=== PATIENT | male | born 1985 | race American Indian/Alaskan Native ===

== ENCOUNTER 2019-03-16 11:19 | Emergency (ER) | payer SELFPAY ==
[2019-03-16 11:25] VITALS: BP 143/108
--- NOTE | 2019-03-16 11:26 | Emergency Department Report ---
Blank Doc - Documentation Documentation: 33-year-old male that presents with meth detox. Saúl any SI/HI. This initial assessment/diagnostic orders/clinical plan/treatment(s) is/are subject to change based on patient's health status, clinical progression and re- assessment by fellow clinical providers in the ED. Further treatment and workup at subsequent clinical providers discretion. Patient/guardians urged not to elope from the ED as their condition may be serious if not clinically assessed and managed. Initial orders include: 1- Patient sent to MAIN ED for further evaluation and treatment 2- labs 3- UA
[2019-03-16 12:14] LABS: Basophils % (Auto) 0.5 % (0.0-1.8); Eosinophils % (Auto) 0.2 % (0.0-4.3); Hematocrit 35.5 % (35.5-45.6); Hemoglobin 11.6 gm/dl (11.8-15.2); Lymphocytes # (Auto) 2.5 K/mm3 (1.2-5.4); Lymphocytes % (Auto) 37.2 % (13.4-35.0); Mean Corpuscular HGB Conc 33 % (32-34); Mean Corpuscular Volume 81 fl (84-94); Monocytes % (Auto) 14.8 % (0.0-7.3); Platelet Count 455 K/mm3 (140-440); Red Blood Count 4.39 M/mm3 (3.65-5.03)
[2019-03-16 12:24] LABS: BUN/Creatinine Ratio 9; Blood Urea Nitrogen 7 mg/dL (9-20); Calcium 9.5 mg/dL (8.4-10.2); Hemolysis Index 0
--- NOTE | 2019-03-16 13:49 | Emergency Department Report ---
HPI - General Chief Complaint: Medical Clearance Time Seen by Provider: 03/16/19 11:25 - HPI HPI: 33-year-old -I[place] male presents to the emergency department to get help with his addiction to methamphetamines. He did last use meth daily. He al so will occasionally smoke marijuana. He denies any medical or psychiatric history. He is looking for some type of program for detox/rehabilitation. Patient says he does hear some nonspecific voices while on meth. He denies any suicidal or homicidal ideations. ED Past Medical Hx - Past Medical History Previous Medical History?: No - Surgical History Past Surgical History?: No - Social History Smoking Status: Current Every Day Smoker Substance Use Type: Alcohol, Methamphetamines - Medications Home Medications: Home Medications Medication Instructions Recorded Confirmed Last Taken Type Ibuprofen [Motrin 600 MG tab] 600 mg PO Q8H PRN #20 tablet 01/30/15 Unknown Rx Sulfamethoxazole/Trimethoprim 1 each PO BID #10 tablet 01/30/15 Unknown Rx [Bactrim DS TAB] ED Review of Systems ROS: Stated complaint: TOOK PILLS/NEEDS HELP Other details as noted in HPI Comment: All other systems reviewed and negative Constitutional: denies: chills, fever Respiratory: denies: cough, shortness of breath Cardiovascular: denies: chest pain, palpitations Gastrointestinal: denies: abdominal pain, vomiting Musculoskeletal: denies: back pain, arthralgia Neurological: denies: headache, weakness Psychiatric: auditory hallucinations. denies: homicidal thoughts, suicidal thoughts Physical Exam - Physical Exam Vital Signs: Vital Signs 03/16/19 11:21 Temperature 97.4 F L Pulse Rate 83 Respiratory 18 Rate Blood Pressure 143/108 O2 Sat by Pulse 100 Oximetry Physical Exam: GENERAL: The patient is well-developed well-nourished. HENT: Normocephalic. Atraumatic. Patient has moist mucous membranes. EYES: Extraocular motions are intact. Pupils equal reactive to light bilaterally. NECK: Supple. Trachea is midline. CHEST/LUNGS: Clear to auscultation. There is no respiratory distress noted. HEART/CARDIOVASCULAR: Regular. There is no tachycardia. There is no murmur. ABDOMEN: Abdomen is soft, nontender. Patient has normal bowel sounds. There is no abdominal distention. SKIN: Skin is warm and dry. NEURO: The patient is awake, alert, and oriented. The patient is cooperative. The patient has no focal neurologic deficits. Normal speech. MUSCULOSKELETAL: There is no tenderness or deformity. There is no evidence of acute injury. ED Course Vital Signs 03/16/19 11:21 Temperature 97.4 F L Pulse Rate 83 Respiratory 18 Rate Blood Pressure 143/108 O2 Sat by Pulse 100 Oximetry ED Medical Decision Making - Lab Data Result diagrams: 03/16/19 11:38 03/16/19 11:38 - Medical Decision Making This patient presented with the complaint of doing meth and requesting help for rehabilitation and detox. At first, during my initial examination, the patient did not appear to be a candidate to be made a 1013. He was seen by the psych hazardous materials waste technician Georgette and he proceeded then to start discussing his suicidal ideations with a plan for overdosing on methamphetamines. For this reason the patient was made a 1013. However as we attempted to get the patient undressed and situated as a 1013, he ran out of the emergency department. The [facility] [employer] were contacted to try and find the patient to bring him back. His labs have been mostly unremarkable except for positive amphetamines on UDS. - Differential Diagnosis substance abuse, depression, bipolar disorder Critical Care Time: No Critical care attestation.: If time is entered above; I have spent that time in minutes in the direct care of this critically ill patient, excluding procedure time. ED Disposition Clinical Impression: Methamphetamine abuse, Suicidal ideations Disposition: ELOPED Is pt being admited?: No Condition: Stable Referrals: PRIMARY CARE, [Primary Care Provider] - 3-5 Days Time of Disposition: 20:01
[2019-03-16 13:53] LABS: Bilirubin,Urine NEG (Negative); Blood,Urine NEG (Negative); Color,Urine Yellow (Yellow); Mucus,Urine FEW /HPF; Protein,Urine <15 mg/dL mg/dL (Negative); Urobilinogen,Urine < 2.0 mg/dL (<2.0); WBC,Urine < 1.0 /HPF (0.0-6.0)
[2019-03-16 14:26] LABS: Benzodiazepines Screen,Urine PRESUMPTIVE NEGATIVE; Cocaine Screen,Urine PRESUMPTIVE NEGATIVE; Methadone Screen,Urine PRESUMPTIVE NEGATIVE; Opiate Screen,Urine PRESUMPTIVE NEGATIVE
[2019-03-16 14:42] LABS: Amphetamine Screen,Urine PRESUMPTIVE POSITIVE; Cannabinoid Screen,Urine PRESUMPTIVE POSITIVE
== END 2019-03-16 19:00 | disposition left against medical advice (07) ==
LOC: ED 11:19
DX: F15.10 Other stimulant abuse, uncomplicated (principal); R45.851 Suicidal ideations; F17.200 Nicotine dependence, unspecified, uncomplicated
CPT/HCPCS: 36415; 80048; 80307; 80320; 81001; 85025; G0480

== ENCOUNTER 2021-03-07 07:39 | Emergency (ER) | payer SELFPAY ==
[2021-03-07 07:43] VITALS: BP 121/75
[2021-03-07] MEDS ORDERED: HYDROcodone/ACETAMINOPHEN 5-325 MG TAB PO ONE (08:03)
[2021-03-07] MEDS ORDERED: IBUPROFEN 800 MG TAB PO STA (08:03)
--- NOTE | 2021-03-07 08:07 | Emergency Department Report ---
ED General Adult HPI - General Chief complaint: Dental/Oral Stated complaint: TOOTHACHE Time Seen by Provider: 03/07/21 07:54 Source: patient Mode of arrival: Ambulatory Limitations: No Limitations - History of Present Illness Initial comments: 35-year-old -[place] male patient presents with complaints of left upper dental pain x1 week. Patient states the pain has been recurrent for the past 2 years and that he was supposed to have his tooth pulled, however he has not had this done. He is not currently following with a dental specialist. He denies any difficulty with opening his jaw, dysphagia, fever/chills/sweats, facial swelling, or swollen glands. He rates his current pain as a 10/10 in severity. No chest pain or shortness of breath or cough per patient. He denies any past medical history - Related Data Previous Rx's Medication Instructions Recorded Last Taken Type Ibuprofen [Motrin 600 MG tab] 600 mg PO Q8H PRN #20 tablet 01/30/15 Unknown Rx Sulfamethoxazole/Trimethoprim 1 each PO BID #10 tablet 01/30/15 Unknown Rx [Bactrim DS TAB] Acetaminophen/Codeine [Tylenol 1 tab PO Q8H PRN #6 tab 03/07/21 Unknown Rx /Codeine # 3 tab] Amoxicillin [Trimox CAP] 500 mg PO Q8H 7 Days #21 capsule 03/07/21 Unknown Rx Ibuprofen [Motrin 800 MG tab] 800 mg PO TID PRN #20 tablet 03/07/21 Unknown Rx Allergies Allergy/AdvReac Type Severity Reaction Status Date / Time No Known Allergies Allergy Verified 03/07/21 07:41 ED Review of Systems ROS: Stated complaint: TOOTHACHE Other details as noted in HPI Constitutional: denies: chills, diaphoresis, fever, malaise, weakness ENT: dental pain. denies: ear pain, throat pain Respiratory: denies: cough Cardiovascular: denies: chest pain Neurological: denies: headache Hematological/Lymphatic: denies: swollen glands ED Past Medical Hx - Past Medical History Previous Medical History?: No - Surgical History Past Surgical History?: No - Social History Smoking Status: Never Smoker - Medications Home Medications: Home Medications Medication Instructions Recorded Confirmed Last Taken Type Ibuprofen [Motrin 600 MG tab] 600 mg PO Q8H PRN #20 tablet 01/30/15 Unknown Rx Sulfamethoxazole/Trimethoprim 1 each PO BID #10 tablet 01/30/15 Unknown Rx [Bactrim DS TAB] Acetaminophen/Codeine [Tylenol 1 tab PO Q8H PRN #6 tab 03/07/21 Unknown Rx /Codeine # 3 tab] Amoxicillin [Trimox CAP] 500 mg PO Q8H 7 Days #21 capsule 03/07/21 Unknown Rx Ibuprofen [Motrin 800 MG tab] 800 mg PO TID PRN #20 tablet 03/07/21 Unknown Rx ED Physical Exam - General Limitations: No Limitations General appearance: alert, in no apparent distress - Head Head exam: Present: atraumatic, normocephalic - Eye Eye exam: Present: normal appearance - Expanded ENT Exam Expanded 1 - Fractured, Dental Tenderness (With erythema and mild swelling of the gums noted; no overlying facial swelling or obvious dental abscess noted) - Neck Neck exam: Present: normal inspection, full ROM. Absent: lymphadenopathy - Respiratory Respiratory exam: Absent: respiratory distress - Cardiovascular Cardiovascular Exam: Present: regular rate - Neurological Exam Neurological exam: Present: alert, oriented X3 - Psychiatric Psychiatric exam: Present: normal affect, normal mood - Skin Skin exam: Present: warm, dry, intact, normal color. Absent: rash ED Course Vital Signs 03/07/21 07:42 Temperature 98.2 F Pulse Rate 82 Respiratory 18 Rate Blood Pressure 121/75 O2 Sat by Pulse 97 Oximetry ED Medical Decision Making - Medical Decision Making 35-year-old -[place] male patient presents with complaints of left upper dental pain x1 week. Patient states the pain has been recurrent for the past 2 years and that he was supposed to have his tooth pulled, however he has not had this done. He is not currently following with a dental specialist. He denies any difficulty with opening his jaw, dysphagia, fever/chills/sweats, facial swelling, or swollen glands. He rates his current pain as a 10/10 in severity. No chest pain or shortness of breath or cough per patient. He denies any past medical history We will treat for dental infection with Amoxil. Recommend patient follows up with dental specialist within 24 to 48 hours. His vitals are normal, he is well- appearing, he is stable for discharge home. Strict return precautions were discussed in detail with patient who verbalizes understanding. Critical care attestation.: If time is entered above; I have spent that time in minutes in the direct care of this critically ill patient, excluding procedure time. ED Disposition Clinical Impression: Chronic dental pain, Infected dental caries Disposition: 01 HOME / SELF CARE / HOMELESS Is pt being admited?: No Condition: Stable Instructions: Dental Caries, Pediatric, Dental Abscess Additional Instructions: Please follow up with a dental specialist of your choice or the list provided within 24 to 48 hours Prescriptions: Ibuprofen [Motrin 800 MG tab] 800 mg PO TID PRN #20 tablet PRN Reason: pain Amoxicillin [Trimox CAP] 500 mg PO Q8H 7 Days #21 capsule Acetaminophen/Codeine [Tylenol /Codeine # 3 tab] 1 tab PO Q8H PRN #6 tab PRN Reason: Pain , Severe (7-10) Referrals: PRIMARY CARE, [Primary Care Provider] - 3-5 Days Time of Disposition: 08:05
== END 2021-03-07 08:38 | disposition home or self-care (01) ==
LOC: ED 07:39
DX: K02.9 Dental caries, unspecified (principal); G89.29 Other chronic pain
CPT/HCPCS: 99282